=== PATIENT | male | born 1955 | race Caucasian/White ===

== ENCOUNTER 2020-03-24 08:20 | Day surgery (SDC) | payer MEDICARE ==
[2020-03-23 11:45] VITALS: BMI 25.7
[~2020-03-24 08:20] MED LIST: Fluorouracil 100 MG, Enoxaparin Sodium 25 MG, EPINEPHrine 0.3 MG in Ophthalmic Irrigati... IRR SCH
[2020-03-24] MEDS ORDERED: Cyclopentolate 1% Opth Drop 2 ML BOT ONE (09:16)
[2020-03-24] MEDS ORDERED: Phenylephrine 2.5% Ophth Soln 5 ML BOT ONE (09:16)
[2020-03-24] MEDS ORDERED: Fentanyl 100 MCG/2 ML VIAL ONE (10:12)
[2020-03-24] MEDS ORDERED: Midazolam HCl 2 mg/2 ml Vial ONE (10:12)
[2020-03-24] MEDS ORDERED: Tobramycin/Dexamethasone Ophth Oint 3.5 GM TUBE ONE (10:56)
[2020-03-24] MEDS ORDERED: Lidocaine 4% PF 5 ML AMP ONE (10:56)
[2020-03-24] MEDS ORDERED: CEFAZOLIN 1 GM VIAL ONE (10:56)
[2020-03-24] MEDS ORDERED: Lidocaine 1% PF 5 ML VIAL ONE (10:56)
[2020-03-24] MEDS ORDERED: PROPOFOL 200 MG/20 ML VIAL ONE (10:56)
[2020-03-24] MEDS ORDERED: Enoxaparin Sodium 30 MG/0.3 ML SYRINGE ONE (10:56)
[2020-03-24] MEDS ORDERED: Bupivacaine PF 0.75% SDV 10 ML ONE (10:56)
--- NOTE | 2020-03-24 19:26 | OP ---
DATE OF PROCEDURE: 03/24/2020 PREOPERATIVE DIAGNOSIS: Rhegmatogenous retinal detachment, left eye. POSTOPERATIVE DIAGNOSIS: Rhegmatogenous retinal detachment, left eye. PROCEDURES PERFORMED: Pars plana vitrectomy, retinal detachment repair of left eye. ANESTHESIA: Local with monitored anesthesia care. DESCRIPTION OF PROCEDURE: The patient identified in preoperative holding area. Appropriate informed consent for the planned surgical procedure on left eye had been obtained. The patient was transported to the operative suite, appropriate cardiopulmonary monitoring was established. Local anesthesia obtained using retrobulbar modified Van Lint lid block using 50:50 mixture of 4% lidocaine and 0.75% bupivacaine. The patient was prepped and draped in usual sterile manner for ophthalmic surgery on the left eye. A lid speculum was placed in left eye, 25-gauge trocar was placed in conjunctiva and sclera superotemporally, inferotemporally, supranasally. Infusion line was placed inferotemporally. Light pipe vitreous cutter inserted into the eye. Core vitrectomy was performed. Special attention was turned to the retinal periphery. Vitreous was trimmed back 360 degrees. Holes were noted at the 3 o'clock and 2 o'clock positions. Posterior drained retinotomy was created inferior to the nerve. Complete air-fluid exchange was performed and 10 minutes being left for fluid to drain posteriorly. A 270-degree laser was placed using Endolaser delivery device, sparing the inferior retina. 28% sulfur hexafluoride gas was infused into the eye. Trocars were removed. All three sclerotomies were suture closed. Subconjunctival Ancef was placed. Antibiotic ointment was placed. The eye was patched and shielded. The patient was taken to the postop recovery unit in good condition having suffered no immediate perioperative complications. The patient was instructed to keep patch and shield on, position left side down. Followup appointment with Dr. Jay. Job ID: [id number]
== END 2020-03-24 13:05 | disposition home or self-care (01) ==
LOC: SDC 08:20
PROVIDERS: ATTEND Ophthalmology Retina Specialist
PROC: 08T53ZZ Resection of Left Vitreous, Percutaneous Approach (ICD-10-PCS; principal; 2020-03-24)
DX: H33.022 Retinal detachment with multiple breaks, left eye (principal)
CPT/HCPCS: J0171; J0690; J1650; J2001; J2250; J2704; J3010; J3490; J9190